=== PATIENT | female | born 1990 | race Two or more races ===

== ENCOUNTER 2019-04-01 03:11 | Emergency (ER) | payer BC, OTHER ==
[~2019-04-01] VITALS: Ht 162.6 cm; Wt 49.9 kg
[2019-04-01] MEDS ORDERED: IV NS 0.9% 1,000 ML IV PRN (04:00)
[2019-04-01 04:04] LABS: BASOPHILS % (AUTO) 0.5 % (0.0-2.0); EOSINOPHILS % (AUTO) 1.7 % (0.0-6.0); HEMATOCRIT 39 % (33-45); HEMOGLOBIN 12.8 g/dL (11.5-14.8); LYMPHOCYTES # (AUTO) 1.7 /CMM (0.8-4.8); LYMPHOCYTES % (AUTO) 24.7 % (20.0-44.0); MEAN CORPUSCULAR HGB CONC 33 g/dl (31.0-36.0); MEAN CORPUSCULAR VOLUME 81 fL (82-100); MONOCYTES # (AUTO) 0.5 /CMM (0.1-1.30); MONOCYTES % (AUTO) 6.4 % (2.0-12.0); NEUTROPHILS # (AUTO) 4.7 /CMM (1.8-8.9); NEUTROPHILS % (AUTO) 66.7 % (43.0-81.0); PLATELET COUNT (AUTO) 211 /CMM (150-450); RED BLOOD CELL COUNT(AUTO) 4.84 MIL/uL (4.0-5.2); WHITE BLOOD COUNT (AUTO) 7.1 K/uL (4.3-11.0)
--- NOTE | 2019-04-01 04:07 | NUR ---
PT CAME TO ER W/ GIRLFRIEND C/O HEART BEATING TOO FAST. PT STATES THAT 30MIN[employer]ES [employer] SHE WAS SHIVERING AND HER HEART WAS RACING. +NAUSEA. DENIES FEVER. AAOX4. NO SOB. BREATHING EVENLY AND UNLABORED. CONNECTED TO MONITOR.
[2019-04-01 04:09] LABS: CALCIUM, SERUM 9.1 mg/dL (8.5-10.1); CREATININE 0.7 mg/dL (0.6-1.3); POTASSIUM 3.3 mmol/L (3.5-5.1)
[2019-04-01 04:27] LABS: THYROID STIMULATING HORMONE 2.348 uIU/mL (0.358-3.74)
--- NOTE | 2019-04-01 04:52 | NUR ---
IV removed. Catheter intact and site benign. Pressure and 4x4 applied to site. No bleeding noted. Patient discharged to home in stable condition. Written and verbal after care instructions given. Patient verbalizes understanding of instruction.
[2019-04-01 04:53] VITALS: BP 114/62
== END 2019-04-01 04:54 | disposition home or self-care (01) ==
LOC: ER 03:17
DX: R00.0 Tachycardia, unspecified (principal); R42 Dizziness and giddiness; R00.2 Palpitations; F10.10 Alcohol abuse, uncomplicated; F17.200 Nicotine dependence, unspecified, uncomplicated; Y90.9 Presence of alcohol in blood, level not specified; Z98.890 Other specified postprocedural states
CPT/HCPCS: 36415; 80048; 84443; 84703; 85025; 93005; 96360; 99284; J7030